=== PATIENT | female | born 1965 | race Caucasian/White ===

== ENCOUNTER → 2020-12-07 14:36 | Outpatient (CLI) | payer OTHER, SELFPAY ==
--- NOTE | ~2020-12-07 | MM_ITS ---
EXAMINATION: MM screening rachel BI w evette HISTORY: Screening mammogram TECHNIQUE: Craniocaudal and mediolateral oblique 3-D tomosynthesis images were obtained and synthetic 2-D images were generated. Bilateral rotated lateral craniocaudal views. CAD analysis was submitted and interpreted. COMPARISON: August 17, 2018 diagnostic left digital mammogram and limited left breast ultrasound August 03, 2018 bilateral screening mammogram 06/06/2014 bilateral digital screening mammogram BREAST PARENCHYMAL COMPOSITION: The breasts are heterogeneously dense, which may obscure small masses . FINDINGS: There is focal architectural distortion in the upper outer quadrant of the left breast; lef t diagnostic mammogram is recommended, with ultrasound if required. Otherwise there is no evidence of suspicious mass, calcification, or architectural distortion to sugg est malignancy in either breast. There has been no suspicious interval change. IMPRESSION: 1. Left upper outer quadrant focal architectural distortion. 2. Diagnostic left mammogram is recommended, with ultrasound if required BI-RADS Category 0: Incomplete: Needs additional imaging evaluation. Reviewed, dictated and finalized at location A.
== END ==
PROVIDERS: Visit Provider Obstetrics & Gynecology Gynecology
DX: Z12.31 Encounter for screening mammogram for malignant neoplasm of breast (principal); R92.8 Other abnormal and inconclusive findings on diagnostic imaging of breast
CPT/HCPCS: 77063; 77067

== ENCOUNTER → 2021-01-08 09:27 | Outpatient (CLI) | payer OTHER, SELFPAY ==
--- NOTE | ~2021-01-08 | MM_ITS ---
EXAMINATION: MM diagnostic rachel LT w evette HISTORY: Left breast asymmetry on screening mammogram TECHNIQUE: Additional 3-D tomosynthesis images of the left breast were performed and synthetic 2-D im ages were generated. CAD analysis was submitted and interpreted. COMPARISON: 12/07/2020, 08/17/2018, 08/03/2018 BREAST PARENCHYMAL COMPOSITION: The breasts are heterogeneously dense, which may obscure small masses . FINDINGS: There is a return to baseline fibroglandular appearance with spot compression of the left b reast in the area questioned on screening mammogram. IMPRESSION: 1. No mammographic evidence of malignancy. 2. Recommend routine screening mammography in one year. BI-RADS Category 1: Negative Reviewed, dictated and finalized at location A.
== END ==
PROVIDERS: PCP Family Medicine; Visit Provider Obstetrics & Gynecology Gynecology
DX: R92.8 Other abnormal and inconclusive findings on diagnostic imaging of breast (principal)
CPT/HCPCS: 77061; 77065; G0279

== ENCOUNTER 2022-04-09 11:54 | Emergency (ER) | payer OTHER, SELFPAY ==
--- NOTE | 2022-04-09 11:56 | ED.URI ---
HPI - URI/Sore Throat General Chief Complaint: Ear Stated Complaint: rt ear ache Time Seen by Provider: 04/09/22 11:56 Source: patient Mode of arrival: ambulatory Limitations: no limitations History of Present Illness HPI Narrative: Ms. Sol is a 56-year-old female patient presenting to clinic today with complaints of right ear pain x1 week. She denies any fever or chills. She does have some nasal congestion as well and some pain over her eustachian tube MD elicited complaint: other (Ear pain) Related Data Home Medications Medication Instructions Recorded Confirmed cholecalciferol (vitamin D3) 10 10 mcg PO DAILY 02/25/20 04/09/22 mcg (400 unit) capsule zinc 50 mg tablet 50 mg PO DAILY 07/09/21 07/09/21 Allergies Allergy/AdvReac Type Severity Reaction Status Date / Time No Known Allergies Allergy Unknown Verified 04/09/22 12:04 Review of Systems Review of Systems: Pertinent positives per HPI. Patient denies any fever, chills, rash, headache, visual changes, dizziness, cough, shortness of breath, chest pain, palpitations, nausea, vomiting, diarrhea, constipation, abdominal pain, or any urinary issues. [facility] Past Medical History Medical History Acute non-recurrent maxillary sinusitis Anemia BMI 25.0-25.9,adult Chronic thoracic back pain COVID-19 (05/15/21) positive home test on 05/18/2021 Screening for viral disease Seasonal allergies Family History Family History Other Family history of coronary artery disease Social History Social History Smoking status: Never smoker Alcohol intake: current Comments At the time of my signature, I reviewed and agree with the nursing past medical, surgical, social, and family history. There is no relevant family history pertinent to the patient complaint. Exam Narrative: General: Well-developed, well nourished, in no apparent distress Head: Normocephalic, atraumatic Eyes: Pupils equally round and reactive to light bilaterally, EOM intact, sclera and conjunctive clear, no discharge, lids normal Ears: TMs intact, dull, opaque, and bulging, ear canals clear, no drainage, grossly hearing normal. Tenderness to palpation of the right eustachian tube Nose: Nares patent, clear nasal discharge, moderate inflammation, no sinus tenderness. Mouth: Oral pharynx without lesions or masses, good dentition, MMM. Postnasal drip Neck: Supple, trachea midline, no enlargement of anterior or posterior cervical nodes, no thyroid masses or goiter palpable. Cardio: Regular rate and rhythm, s1 and s2 normal, no murmur appreciated. Resp: Clear to auscultation bilaterally, no rhonchi, rales, wheezing or rubs Course Course Emergency Course: Portions of this record may have been created with voice recognition software. Level of Care: Express Care Visit Vital Signs Vital signs: Vital signs reviewed MDM - URI/Sore Throat MDM Narrative Medical decision making narrative: At the time of visit patient is resting comfortably on the exam table. I suspect the patient has bilateral eustachian tube dysfunction. Supportive measures were discussed with the patient she voiced understanding of discharge instructions and agrees to treatment plan. Prescription for prednisone was sent to the pharmacy. Differential Diagnosis Differential diagnosis: Likely sinusitis, viral infection, influenza and pharyngitis Discharge Plan Discharge Clinical Impression: Eustachian tube dysfunction Qualifiers: Laterality: bilateral Qualified Code(s): H69.83 - Other specified disorders of Eustachian tube, bilateral Patient Disposition: Home, Self-Care Condition: Stable Instructions: Antibiotic Form, Earache (ED) Additional Instructions: Take any prescribed medications only as directed, prednisone Tylenol
[2022-04-09 12:07] VITALS: BP 114/85; PULSE 94; RESP 16; TEMP 37; O2SAT 100
== END 2022-04-09 12:22 | disposition home or self-care (01) ==
PROVIDERS: Emergency Provider Nurse Practitioner Family; PCP Family Medicine
DX: H69.83 Other specified disorders of Eustachian tube, bilateral (principal); Z86.16 Personal history of COVID-19
CPT/HCPCS: 99213; G0463

== ENCOUNTER → 2023-03-22 13:48 | Outpatient (CLI) | payer OTHER, SELFPAY ==
--- NOTE | ~2023-03-22 | MM_ITS ---
EXAMINATION: MM screening rachel BI w evette HISTORY: Screening TECHNIQUE: Craniocaudal and mediolateral oblique 3-D tomosynthesis images were obtained and synthetic 2-D images were generated. CAD analysis was submitted and interpreted. COMPARISON: Comparison to multiple prior studies sequentially, with oldest reviewed study dated 05/03. BREAST PARENCHYMAL COMPOSITION: The breasts are heterogeneously dense, which may obscure small masses FINDINGS: There is no evidence of suspicious mass, calcification, or architectural distortion to sugg est malignancy in either breast. There has been no suspicious interval change. IMPRESSION: 1. No mammographic evidence of malignancy. 2. Recommend routine screening mammography in one year. BI-RADS Category 1: Negative Reviewed, dictated and finalized at location A.
== END ==
PROVIDERS: PCP Nurse Practitioner Obstetrics & Gynecology; Visit Provider Nurse Practitioner Obstetrics & Gynecology
DX: Z12.31 Encounter for screening mammogram for malignant neoplasm of breast (principal)
CPT/HCPCS: 77063; 77067

== ENCOUNTER 2023-03-23 10:55 | Outpatient (CLI) | payer OTHER, SELFPAY ==
[2023-03-24 12:08] LABS: Kit Draw Collected
== END 2023-03-23 10:56 | disposition home or self-care (01) ==
LOC: ANHGOSHLAB 10:59
PROVIDERS: PCP Nurse Practitioner Obstetrics & Gynecology
DX: Z00.00 Encounter for general adult medical examination without abnormal findings (principal)
CPT/HCPCS: 36415

== ENCOUNTER 2024-03-25 10:10 | Outpatient (CLI) | payer BC, SELFPAY ==
--- NOTE | ~2024-03-25 | MM_ITS ---
EXAMINATION: MM screening rachel BI w evette HISTORY: Screening TECHNIQUE: Craniocaudal and mediolateral oblique 3-D tomosynthesis images were obtained and synthetic 2-D images were generated. CAD analysis was submitted and interpreted. COMPARISON: Comparison to multiple prior studies sequentially, with oldest reviewed study dated 10/2013. BREAST PARENCHYMAL COMPOSITION: Dense: The breasts are heterogeneously dense, which may obscure small masses FINDINGS: There is no evidence of suspicious mass, calcification, or architectural distortion to sugg est malignancy in either breast. There has been no suspicious interval change. IMPRESSION: 1. No mammographic evidence of malignancy. 2. Recommend routine screening mammography in one year. BI-RADS Category 1: Negative Reviewed, dictated and finalized at location B.
== END 2024-03-25 10:11 | disposition home or self-care (01) ==
PROVIDERS: PCP Family Medicine; Visit Provider Nurse Practitioner
DX: Z12.31 Encounter for screening mammogram for malignant neoplasm of breast (principal)
CPT/HCPCS: 77063; 77067

== ENCOUNTER 2024-11-08 09:09 | Outpatient (CLI) | payer BC, SELFPAY ==
--- NOTE | ~2024-11-08 | US_ITS ---
US axilla LT 11/08/2024 09:23 Indication: Palpable left axillary mass Procedure: High-resolution ultrasound of the left axilla Comparison: No prior studies for comparison. Findings: In the area of palpable concern, 6 cm from the nipple there is an irregular shaped hypoecho ic parallel oriented mass measuring 2.1 x 1.6 x 2.1 cm with irregular lateral margins, posterior acou stic enhancement and no internal vascularity. Impression: 1: Complex irregular shaped left axillary mass, 6 cm from the nipple measuring 2.1 cm. Recommendation: Recommend correlation with diagnostic bilateral mammogram. BI-RADS CATEGORY 0 - INCOMPLETE STUDY, NEED ADDITIONAL IMAGING EVALUATION. Reviewed, dictated and finalized at location A. Impression: 1: Complex irregular shaped left axillary mass, 6 cm from the nipple measuring 2.1 cm. Recommendation: Recommend correlation with diagnostic bilateral mammogram. BI-RADS CATEGORY 0 - INCOMPLETE STUDY, NEED ADDITIONAL IMAGING EVALUATION.
== END 2024-11-08 09:10 | disposition home or self-care (01) ==
LOC: MICIMG 09:10
PROVIDERS: PCP Nurse Practitioner; Visit Provider Surgery
DX: R59.0 Localized enlarged lymph nodes (principal); N63.32 Unspecified lump in axillary tail of the left breast
CPT/HCPCS: 76882

== ENCOUNTER 2025-01-15 09:02 | Outpatient (CLI) | payer BC, SELFPAY ==
--- NOTE | ~2025-01-15 | US_ITS ---
EXAMINATION: US GUIDED NEEDLE BIOPSY WITH VACUUM ASSISTANCE DATE: 01/16/2025 07:14 CDT INDICATION: Left axillary mass. Ultrasound-guided core biopsy is requested to evaluate for malignanc y. TECHNIQUE AND FINDINGS: The risks and potential benefits of the procedure were discussed with the patient, and written inform ed consent was obtained. After sterile preparation of the left, 1% lidocaine was utilized for local anesthesia. 1% lidocaine with epinephrine was used for deep anesthesia. A 10G vacuum-assisted biopsy gun needle was advanced through to the outer edge of the region of inter est from a left axillary approach utilizing sonographic guidance. A total of 4 tissue core samples w ere obtained through the lesion. An Inrad tissue marker clip was then placed at the biopsy site. Hem ostasis was achieved. The patient tolerated procedure well and there was no evidence of immediate complication. The patien t was given verbal instructions partly is from the department. The tissue samples were submitted to s urgical pathology for histologic analysis. IMPRESSION: 1. Successful ultrasound-guided vacuum-assisted biopsy of left axillary mass with post procedure rachel mogram for marker placement. Please refer to pathology report for histologic analysis. Reviewed, dictated and finalized at location B. IMPRESSION: 1. Successful ultrasound-guided vacuum-assisted biopsy of left axillary mass w ith post procedure mammogram for marker placement. Please refer to pathology re port for histologic analysis.
--- OUTSIDE RECORDS SUMMARY | 2025-01-15 09:08 | XMS_ITS | Data Portability ---
Author Organization [place] [facility] [place] [place] - DME Address [address] [place] [address] Care Team Providers Care Security Door Installer Name Role Phone DUNCAN DAO Primary Care Provider [phone] Assessment No assessment recorded. Plan of Treatment Reminders Order Date Submit Date Provider Last Modified By Organization Details Last Modified Time Details Appointments None record ed. Lab None record ed. Referral None record ed. Procedures None record ed. Surgeries None record ed. Imaging None record ed. Medication Orders None record ed. Patient TargetsNo targets recorded. Patient Instructions Encounter Date Encounter Id Patient Instructions Last Modified By Organization Details Last Modified Time 09/26/[id number] bone spur repair : before your surgery [email or web address] Not available 09/26/2018 16:00:34 I recommended surgical intervention as the best alternative due to the pain and deformity and effects/limitations on lifestyle and activities. Informed consent during a 30min face to face consult detailing the examination results, diagnosis, prognosis and various treatment alternatives. Discuss all alternatives, conservative care as well as surgical options. I think surgery gives the best chance of alleviating the symptoms. We discussed the indications for surgery, the procedure(s) to be performed, typical disability involved and expected post op course. The patient understands that if surgery is performed, there are risks and potential complications the could occur, including bleeding, hematoma formation, development of blood clots/DVT or phlebitis, infection or inflammation, loss of toes/foot/leg, excessive or prolonged swelling, painful or hypertrophic scar, damage to vital structures, limited motion or stiffness, delayed or abnormal healing, reaction to medication/sutures or other implanted biomaterials, over correction, under correction, recurrence of deformity, continued or recurrent pain, numbness, change or loss of function, damage to nerves, vascular structure, tendon or bones, allergic reaction or anesthesia complications including and the possibility that revision or future surgery may be needed if abnormal healing occurs. All questions were answered to the best of my ability. The patient voiced no concerns, verbalized an understanding and acceptance of the risks and would like to proceed with surgery. Discuss anesthesia options and will discuss further with the anesthesiologist on the day of surgery. Will schedule at [facility] when convenient. Planned procedure(s): MIS exostectomy [email or web address] Not available 09/26/2018 16:00:03 10/05/2018 [id number] I recommended surgical intervention as the best alternative due to the pain and deformity and effects/limitations on lifestyle and activities. Informed consent during a 30min face to face consult detailing the examination results, diagnosis, prognosis and various treatment alternatives. Discuss all alternatives, conservative care as well as surgical options. I think surgery gives the best chance of alleviating the symptoms. We discussed the indications for surgery, the procedure(s) to be performed, typical disability involved and expected post op course. The patient understands that if surgery is performed, there are risks and potential complications the could occur, including bleeding, hematoma formation, development of blood clots/DVT or phlebitis, infection or inflammation, loss of toes/foot/leg, excessive or prolonged swelling, painful or hypertrophic scar, damage to vital structures, limited motion or stiffness, delayed or abnormal healing, reaction to medication/sutures or other implanted biomaterials, over correction, under correction, recurrence of deformity, continued or recurrent pain, numbness, change or loss of function, damage to nerves, vascular structure, tendon or bones, allergic reaction or anesthesia complications including and the possibility that revision or future surgery may be needed if abnormal healing occurs. All questions were answered to the best of my ability. The patient voiced no concerns, verbalized an understanding and acceptance of the risks and would like to proceed with surgery. Discuss anesthesia options and will discuss further with the anesthesiologist on the day of surgery. Will schedule at [facility] when convenient. Planned procedure(s): MIS exostectomy Pre-operative and pre-admission consultation and paperwork completed. The pre-op instructions were reviewed and explained, any needed pre-op testing scheduled, physician pre-surgery consultations/work up and medical/anesthesia clearance issues were addressed. The surgical consent, was reviewed, signed and witnessed. Post op instructions were reviewed and explained in detail, the risks of not following the instructions emphasized. The risks and complication were reviewed, surgical considerations sheets were reviewed. Written copies of the above were given. Post op pain and anti-inflammatory medications and any other prescriptions were given. All questions about the pre- and post-op course, facility protocols and the surgical procedure were fully answered. [email or web address] Not available 10/05/2018 12:14:42 10/11/2018 [id number] Pre op Dx: Exost osis R1 toe distal phalanx Post op Dx: Same Procedure: Exostectomy Ri distal phalanx Anesth: Local MAC Surgeon: Asst: Stephon PGY2 Hemostasis/EBL: <1cc Injectables: Lidocaine 1%, Marcaine 0.5%, dexamethasone phosphate Patient tolerated anesthesia and procedure well, left OR to recovery in good condition and spirits. Scheduled for F/U my office, written instructions and pain meds have been given Not available 10/11/2018 09:40:05 10/16/2018 [id number] Suture removal, ster-strip applied. TYE and bandaid 24-48 hours. Stay in post op shoes x 1 week, then shoes to tolerance. Check 3 weeks for final check. Not available 10/16/2018 14:36:34 11/07/[id number] Shoes and activi ties to tolerance. Try different shoes, I suspect hallux bilateral rubbing. Check PRN. [email or web address] Not available 11/07/2018 13:49:26 Reason for Referral None Reported. Results Created Date Observation Date Name Description Value Unit Range Abnormal Flag Note LastModifiedBy Organization Detail LastModifiedTime Result Notes None recorded. Procedures Surgical History Date Name Laterality Status Provider Name and Address Organization Details Recorded Time 9 [id number] limited RIGHT Ft SK completed Fady Willoughby DPM [facility] [place], [address], [facility] 10/16/2018 14:35:05 9 [id number] limited RIGHT Ft SK completed Fady Willoughby DPM [address] [place], [address], [facility] 09/26/2018 15:58:40 delivery completed [facility] [place] [facility] 09/26/2018 15:27:44 Other completed Racquel Goyal [place] [facility] 09/26/2018 15:27:59 Imaging Results None recorded. Procedure Notes None recorded. Medical Equipment None Reported. Allergies No known drug allergies Medications Name Sig Start Date Stop Date Status Note LastModified by Organization Details LastModified Time cyclobenzaprine 10 mg tablet active Not Available Not Available Not Available amoxicillin 500 mg capsule active Not Available Not Available N ot Available hydrocodone 5 mg-acetaminophen 325 mg tablet active Not Available Not Availabl e Not Available acetaminophen 300 mg-codeine 30 mg tablet active Not Available Not Available Not Available tamsulosin 0.4 mg capsule active Not Available Not Available Not Available nabumetone 500 mg tablet active Not Available Not Available Not Available neomycin 3.5 mg/g-polymyxin B 10,000 unit/g-dexameth 0.1 % eye oint active Not Available Not Availab le Not Available Vitals Date Recorded Body height Body mass index (BMI) Body weight Provider Name and Address Organization Details Last Updated DateTime 09/26/2018 167.64 cm 27.4 kg/m2 05796.7 g Racquel Goyal [facility] 09/26/2018 15:27:09 Date Recorded Body height Body temperature Provider N gopi and Address Organization Details Last Updated DateTime 10/16/2018 167.64 cm 96.7 [degF] [facility] 10/16/2018 14:23:06 Date Recorded Body height Provider Name an d Address Organization Details Last Updated DateTime 11/07/2018 167.64 cm nasir [place]ovalsley [place] [facility] 11/07/2018 12:45:21 Social History Question Answer Notes LastModified by Organizat ion Details LastModified Time Tobacco Smoking Status Never Smoker Racquel Goyal [facility] 09/26/2018 15:27:28 Size Of Shoes 8.5 [email or web address] Information not available 09/26/2018 What Was The Date Of Your Most Recent Tobacco Screening? 11/07/2018 Information n ot available 01/23/2019 Sex: Unknown Functional Status None recorded. Mental Status None recorded. Family History Relationship Description Onset Age of this Age Resolved Age Notes LastModified by Organization Details LastModified Time Father No current problems or disability [email or web address] Not available 09/26 15:27:22 Mother No current problems or disability [email or web address] Not available 09/26 15:27:22 Medical History Condition Response Tuberculosis or TB N Heart Problems N Ulcers on Legs or Feet N HIV or AIDS N Coronary Artery Disease N Gout N Seizure Disorder N High Blood Pressure N Clot in Lung or Pulmonary Embolism N Menopause Y Lung Condition N Phlebitis or Venous Blood Clot N Migraines Y Depression N Pacemaker N Anemia N Back Pain Y Neurologic Disease N Sciatica Y Heart Attack ([place]) N Diabetes N Urinary Tract Infections N Anxiety Disorder N Bleeding Disorder N Arthritis Y Abuse of Alcohol or Drugs N Back injury N Ear Problems Y Cancer N Dementia N Eye Problems N Stroke N Stomach Problems N Peripheral Vascular Disease N Sinus Conditions Y Broken Bone N Thyroid Disorder N High Cholesterol N Hepatitis N Liver Disease N Heart Disease N Rheumatoid Arthritis N Rash N Osteoporosis N Kidney Disease N Gynecological HistoryNo gynecological history recorded. Obstetrics History GPAL:G 0 P 0 0 0 0 Past Encounters Encounter ID Performer Location Encounter Start Date Encounter Closed Date Diagnosis/Indication Diagnosis SNOMED-CT Code Diagnosis ICD10 Code Diagnosis Note [id number] [facility] [address] [place] [address] 09/26/2018 15:15:37 09/26/2018 16:00:51 Exostosis 374578462 M77.9 Pain of to e of right foot 0698840170 93196 M79.674 [id number] [facility] [address] 10/05/2018 10:51:44 10/05/2018 11:34:51 Exostosis 722769786 M77.9 Pain of to e of right foot 2577171945 37201 M79.674 [id number] Fady Willoughby DPM [facility] [address] [place] [address] 10/11/2018 09:09:08 10/11/2018 09:09:59 Exostosis 238257715 M77.9 Pain of to e of right foot 9114347194 19452 M79.674 [id number] Fady Willoughby DPM [place] [address] [place] [address] 10/16/2018 14:14:39 10/16/2018 14:35:46 Exostosis 605284089 M77.9 [id number] Fady Willoughby [facility] [place] [address] [place] [address] 11/07/2018 12:24:35 11/07/2018 12:48:46 Exostosis 536109381 M77.9 Health Concerns Section Related Observation LastModified by Organization Detai ls LastModified Time None Recorded Concern Status LastModified by Organization Details LastModified Time None Recorded Advance Directives Directive None Recorded Payers Insurance Date Sequence Insurance Name Policy Number Policy Asencio Covered Member ID Asencio Member ID Guarantor Name 12/18/2018 1 [place] [id number] Geri Sol [id number] Geri Sol Notes Date Note Type Note Provider Name and Address Organization Details Recorded Time 09/26/2018 text/html R1 toe when nail ukrainian is put on. PPA years ago. No redness, swelling. Burning pain. Fady Willoughby DPM [address] [place], [address], [facility] 09/26/2018 16:00:36 10/05/2018 text/html R1 toe when nail ukrainian is put on. PPA years ago. No redness, swelling. Burning pain. Fady Willoughby DPM [address] [place], [address], [facility] 10/05/2018 12:15:00 10/16/2018 text/html Post-Op Follow Up--Reported bypatient.Locat ion:Surgery on the right toe; R1 Quality:improvi ng Severity:no pain; only when fitting into a shoe Context:wearing a surgial shoe;dressings removed Alleviating Factors:rubbing the area; limited weight bearing; rest Aggravating Factors:pressur e Associated Symptoms:rednes s Prior Imaging:x ray Fady Willoughby DPM [address] [place], [address], [facility] 10/16/2018 14:37:14 11/07/2018 text/html No pain surgical area R1 subungual. Fady Willoughby DPM [address] [place], [address] 11/07/2018 13:49:50 OBGyn Episode No OBEpisode recorded.
--- OUTSIDE RECORDS SUMMARY | 2025-01-15 09:08 | XMS_ITS | Clinical Summary ---
Author Organization [facility] [address] [place] [id number] Care Team Providers Care Demand Planner Name Role Phone Kishor Daley MD Primary Care Provider [phone] Allergies No known active allergies Medications progesterone (PROMETRIUM) 100 mg capsule Take 1 capsule (100 mg total) by mouth nightly 07/30/2024 Active cetirizine (ZyrTEC) 10 mg tablet Take 1 tablet (10 mg total) by mouth daily Active Active Problems Problem Noted Date Diagnosed Date Dysfunction of right eustachian tube 08/21/2024 Assessment & Plan (08/21/2024 8:45 PM [employer]): She has a pretty normal ear exam in her hearing test is generally pretty good also. There maybe some problems with Eustachian tube dysfunction on this side but I think that that is probably going to be temporary. She should expect this to gradually improve over the next 3-4 weeks. If she has any increasing symptoms or other problems I have asked her to follow up with me. She understands. Tinnitus of both ears 08/21/2024 Assessment & Plan (08/21/2024 8:52 PM [employer]): I talked with the patient about tinnitus. Typically it is due to hearing loss but there are other potential reasons for it. It can occur due to cervical strain or TMJ disorder. Also potentially due to tumors which are usually benign. Unfortunately there is no widely accepted or successful treatment for it. There are a lot of [id number] remedies which generally do not help and I really do not recommend any of them. In her case I think it is probably due to her high-frequency sensorineural hearing loss. I do not think that amplification is necessary but I really do not have anything to recommend for the tinnitus. Tonsil stone 08/21/2024 Assessment & Plan (08/21/2024 8:53 PM [employer]): She had listed this on her paperwork but we really did not discuss it. I did not notice anything abnormal involving her tonsils. We will discuss that with her over the phone. Arthralgia of hip 08/18/2015 Encounters Date Type Department Care Team Description 12/03/2024 Telephone [facility] [address] [facility] [address] [address] Brea Kika 12/03/2024 Telephone [facility] Floor [address] [place] [address] Referral, Self Medical Question/Miscellaneous from Last 3 Months Surgical History Surgery Date Site/Laterality Comments BLEPHAROPLASTY Medical History Medical History Date Comments Allergies Ear problems Tinnitus Social History Tobacco Use Types Packs/Day Years Used Date Smoking Tobacco: Never Smokeless Tobacco: Never Tobacco Cessation:Counseling Given: Not Answered Comments Unknown Sex and Gender Information Value Date Recorded Sex Assigned at Not on file Legal Sex Female 10:50 AM [employer] Gender Identity Not on file Sexual Orientation Not on file Obstetrics History Last Filed Vital Signs Vital Sign Reading Time Taken Comments Blood Pressure - - Pulse - - Temperature - - Respiratory Rate 18 08/21/2024 10:17 AM [employer] Oxygen Saturation - - Inhaled Oxygen Concentration - - Weight 71.2 kg (157 lb) 08/21/2024 10:17 AM [employer] Height 167.6 cm (5' 6) 08/21/2024 10:17 AM [employer] Body Mass Index 25.34 08/21/2024 10:17 AM [employer] Plan of Treatment Health Maintenance Due Date Last Done Comments Breast Cancer Screening-Mammogram 1967 Cervical Cancer Screening 1967 Colon Cancer Screening-Colonoscopy 1967 Depression Screening 1967 Hepatitis C Screening 1967 DTaP/Tdap/Td Vaccine (1 - Tdap) 12/29/1978 Hepatitis B Screening 12/29/1985 Regular Well Visit/Exam 18-64 12/29/1985 Zoster Vaccine (1 of 2) 12/29/2017 Influenza Vaccine (#1) 2025 Pneumococcal vaccine <65 Aged Out No longer eligible based on patient's age to complete this topic [facility] [place] [facility] Care Teams Demand Planner Relationship Specialty Start Date End Date Kishor Daley MD [address] [id number] PCP - General Family Medicine 08/06/24
--- OUTSIDE RECORDS SUMMARY | 2025-01-15 09:08 | XMS_ITS | Data Portability ---
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 Patient will come back in a year unless there are new symptoms. [email or web address] Not available 08/23/2022 16:08:44 09/11/2023 09/11/2023 Annual gynecological exam performed. Patient will come back in a year unless there are new symptoms. Not available 09/11/2023 11:02:04 Plan of Treatment Reminders Order Date Submit Date Provider Last Modified By Organization Details Last Modified Time Details Appointments None recorded. Lab vitamin D, 25-hydroxy, total, serum 2022 023 [facility] (Lab), [address], [place], [address], 3 14:23:50 lipid panel, blood 2022 023 [facility] (Lab), [address], [place], [address], 3 14:23:47 HbA1c (hemoglobin A1c), blood 2022 023 [facility] (Lab), [address], [place], [address], 3 14:23:51 CBC w/ auto diff 2022 023 [facility] (Lab), [address] , [place], [address], 3 14:23:50 CMP, serum or plasma 2022 023 [facility] (Lab), [address], [place], [address], 3 14:23:48 TSH, serum or plasma 2022 023 [facility] (Lab), [address], [place], [address], 3 14:23:49 vitamin B12 + folate, serum or blood 2022 023 [facility] (Lab), [address], [place], [address], 3 14:23:49 Referral breast surgery referral 2024 025 [email or web address] 1 Fabiana Ramires MD, [address], [place], [address], 5 11:09:27 Procedures None recorded. Surgeries None recorded. Imaging MAMMO, diagnostic, unilateral - left breast lump 2024 025 [facility], [address], [place], [address], 5 04:12:18 US, breast, unilateral - left breast lump 2024 025 [facility], [address], [place], [address], 5 10:42:04 MAMMO, screening, digital, bilateral 2023 024 [facility], [address], [place], [address], 4 05:01:28 MAMMO, screening, bilateral 2022 023 [facility], [address], [place], [address], 4 05:00:41 Medication Orders fluconazole 150 mg tablet 2023 025 [facility] [address], [place], [address], 5 12:26:58 estradiol 0.01% (0.1 mg/gram) vaginal cream 2023 025 [facility] [address], [place], [address], 5 12:26:57 Patient TargetsNo targets recorded. Patient InstructionsNo instructions recorded. 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, Encounter Date: 10/01/2024 Results Created Date Observation Date Name Description Value Unit Range Abnormal Flag Note LastModifiedBy Organization Detail LastModifiedTime 08/23/1908/23/2022 LIPID PANEL ,AMA (LDL- CALC) total cholesterol 180 mg/dL 0-199 Not Available [facility] [place] [facility] (Lab) [address], [place], [address], 08/24/2022 14:23:47 08/23/19 23 08/23/2022 LIPID PANEL ,AMA (LDL- CALC) triglyceride s 62 mg/dL 0.00-1 50.00 NCEP Refer ence Value s for Trigl yceri flip: Traa l: <150 mg/dL Borde rline High: 150 - 199 mg/dL High: 200 - 499 mg/dL Very High: >/= 500 mg/dL Not Available [facility] (Lab) [address], [place], [address], 08/24/2022 14:23:47 08/23/19 23 08/23/2022 LIPID PANEL ,AMA (LDL- CALC) HDL cholesterol 84 mg/dL >40 Not Available [facility] [place] [facility] (Lab) [address] [facility], [place], [address], 08/24/2022 14:23:47 08/23/19 23 08/23/2022 LIPID PANEL ,AMA (LDL- CALC) LDL cholesterol 84 mg/dL 0-99 Cutof f value s recom alem d by the Natio nal Caterina stero l Educa tion Progr am: HOMER ABLE: Caterina stero l <200 mg/dL LDL <100 mg/dL BORDE RLINE : Caterina stero l 200-2 39 mg/dL LDL 101-1 59 mg/dL HIGHE R RISK: Caterina stero l >240 mg/dL LDL >160 mg/dL , HDL <40 mg/dL Not Available [facility] (Lab) [address] [facility], [place], [address], 08/24/2022 14:23:47 08/23/19 23 08/23/2022 LIPID PANEL ,AMA (LDL- CALC) non-HDL cholesterol 96 mg/dL no refere nce range A reaso nable goal for non-H DL caterina stero l is one that is 30 mg/dL highe r than the LDL caterina stero l goal. Not Available [facility] (Lab) [address], [place], [address], 08/24/2022 14:23:47 08/23/19 23 08/23/2022 LIPID PANEL ,AMA (LDL- CALC) chol/HDL ratio 2.1 . 0.0-5. 0 Not Available [facility] (Lab) [address] [facility] [address], [place], [address], 08/24/2022 14:23:47 08/23/19 23 08/23/2022 CMP(C OMPRE HENSI VE METAB OLIC PANEL ) sodium 139 mmol/ L 133-14 6 Not Available [facility] (Lab) [address] [facility], [place], [address], 08/24/2022 14:23:48 08/23/19 23 08/23/2022 CMP(C OMPRE HENSI VE METAB OLIC PANEL ) potassium 4.2 mmol/ L 3.5-5. 1 Not Available [facility] (Lab) [address], [place], [address], 08/24/2022 14:23:48 08/23/19 23 08/23/2022 CMP(C OMPRE HENSI VE METAB OLIC PANEL ) chloride 105 mmol/ L 98-107 Not Available [facility] (Lab) [address], [place], [address], 08/24/2022 14:23:48 08/23/19 23 08/23/2022 CMP(C OMPRE HENSI VE METAB OLIC PANEL ) carbon dioxide 25 mmol/ L 21-31 Not Available [facility] (Lab) [address] [facility], [place], [address], 08/24/2022 14:23:48 08/23/19 23 08/23/2022 CMP(C OMPRE HENSI VE METAB OLIC PANEL ) anion gap 9 mmol/ L 4-13 Not Available [facility] (Lab) [address] [facility], [place], [address], 08/24/2022 14:23:48 08/23/19 23 08/23/2022 CMP(C OMPRE HENSI VE METAB OLIC PANEL ) blood urea nitrogen 24 mg/dL 7-25 Not Available [facility] (Lab) [address], [place], [address], 08/24/2022 14:23:48 08/23/19 23 08/23/2022 CMP(C OMPRE HENSI VE METAB OLIC PANEL ) creatinine 0.84 mg/dL 0.60-1 .30 Not Available [facility] (Lab) [address], [place], [address], 08/24/2022 14:23:48 08/23/19 23 08/23/2022 CMP(C OMPRE HENSI VE METAB OLIC PANEL ) egfrcr (CKD-epi 2020) 83 mL/mi n/1.7 3_m2 >=60 Not Available [facility] (Lab) [address], [place], [address], 08/24/2022 14:23:48 08/23/19 23 08/23/2022 CMP(C OMPRE HENSI VE METAB OLIC PANEL ) calcium 9.3 mg/dL 8.3-10 .5 Not Available [facility] (Lab) [address], [place], [address], 08/24/2022 14:23:48 08/23/19 23 08/23/2022 CMP(C OMPRE HENSI VE METAB OLIC PANEL ) glucose 88 mg/dL 70-100 Not Available [facility] (Lab) [address], [place], [address], 08/24/2022 14:23:48 08/23/19 23 08/23/2022 CMP(C OMPRE HENSI VE METAB OLIC PANEL ) protein, total 6.4 g/dL 6.4-8. 3 Not Available [facility] (Lab) [address], [place], [address], 08/24/2022 14:23:48 08/23/19 23 08/23/2022 CMP(C OMPRE HENSI VE METAB OLIC PANEL ) albumin 4.4 g/dL 3.5-5. 0 Not Available [facility] (Lab) [address], [place], [address], 08/24/2022 14:23:48 08/23/19 23 08/23/2022 CMP(C OMPRE HENSI VE METAB OLIC PANEL ) ALT 13 units /L 9-43 Not Available [facility] (Lab) [address], [place], [address], 08/24/2022 14:23:48 08/23/19 23 08/23/2022 CMP(C OMPRE HENSI VE METAB OLIC PANEL ) alkaline phosphatase 71 units /L 34-104 Not Available [facility] (Lab) [address] [facility], [place], [address], 08/24/2022 14:23:48 08/23/19 23 08/23/2022 CMP(C OMPRE HENSI VE METAB OLIC PANEL ) AST 14 units /L 13-39 Not Available [facility] (Lab) [address] [facility], [place], [address], 08/24/2022 14:23:48 08/23/19 23 08/23/2022 CMP(C OMPRE HENSI VE METAB OLIC PANEL ) bilirubin, total 0.4 mg/dL 0.2-1. 2 Not Available [facility] (Lab) [address], [place], [address], 08/24/2022 14:23:48 08/23/19 23 08/23/2022 TSH, REFLE X FREE T4 TSH 1.98 uIU/m L 0.30-5 .33 Not Available [facility] (Lab) [address], [place], [address], 08/24/2022 14:23:48 08/23/19 23 08/23/2022 VITAM IN B12 / FOLAT E PANEL vitamin B12 456 pg/mL 180-91 4 Tara l Range : 180-9 14 pg/mL . Indet ermin ate Range : 145-1 80 pg/mL . Defic ient Range : <=145 pg/mL . Not Available [facility] (Lab) [address] [place], [address], 08/24/2022 14:23:49 08/23/19 23 08/23/2022 VITAM IN B12 / FOLAT E PANEL folate, serum 13.5 NG/mL 6.0-20 .0 Not Available [facility] (Lab) [address] [place], [address], 08/24/2022 14:23:49 08/23/19 23 08/23/2022 VITAM IN D, 25-OH (TOTA L D2/D3 ) vitamin D, 25-hydroxy, total 75.6 NG/mL 30.0-1 00.0 Sugge stive of Defic iency : <20 ng/mL Sugge stive of Insuf ficie ncy: 20-29 ng/mL Sugge stive of Suffi cienc y: 30-10 0 ng/mL Sugge stive of Toxic ity: >150 ng/mL Not Available [facility] (Lab) [address], [place], [address], 08/24/2022 14:23:50 08/23/19 23 08/23/2022 CBC W/DIF F WBC 5.5 10'3/ uL 3.6-10 .2 Not Available [facility] (Lab) [address], [place], [address], 08/24/2022 14:23:50 08/23/19 23 08/23/2022 CBC W/DIF F RBC 4.38 10'6/ uL (based on docume nted legal sex) 4.10-5 .30 Not Available [facility] (Lab) [address], [place], [address], 08/24/2022 14:23:50 08/23/19 23 08/23/2022 CBC W/DIF F HGB 10.4 g/dL (based on docume nted legal sex) 11.9-1 5.8 low Not Available [facility] (Lab) [address], [place], [address], 08/24/2022 14:23:50 08/23/19 23 08/23/2022 CBC W/DIF F HCT 35.1 % (based on docume nted legal sex) 37.4-4 8.3 low Not Available [facility] (Lab) [address], [place], [address], 08/24/2022 14:23:50 08/23/19 23 08/23/2022 CBC W/DIF F MCV 80.1 fL 82.0-9 9.0 low Not Available [facility] (Lab) [address], [place], [address], 08/24/2022 14:23:50 08/23/19 23 08/23/2022 CBC W/DIF F MCH 23.7 pg 27.0-3 3.0 low Not Available [facility] (Lab) [address], [place], [address], 08/24/2022 14:23:50 08/23/19 23 08/23/2022 CBC W/DIF F MCHC 29.6 g/dL 32.0-3 6.0 low Not Available [facility] (Lab) [address], [place], [address], 08/24/2022 14:23:50 08/23/19 23 08/23/2022 CBC W/DIF F RDW 14.8 % 11.0-1 5.0 Not Available [facility] (Lab) [address], [place], [address], 08/24/2022 14:23:50 08/23/19 23 08/23/2022 CBC W/DIF F plt 268 10'3/ uL 150-45 0 Not Available [facility] (Lab) [address], [place], [address], 08/24/2022 14:23:50 08/23/19 23 08/23/2022 CBC W/DIF F MPV 11.9 fL 9.8-12 .7 Not Available [facility] (Lab) [address], [place], [address], 08/24/2022 14:23:50 08/23/19 23 08/23/2022 CBC W/DIF F NRBC's 0.0 % 0 Not Available [facility] (Lab) [address], [place], [address], 08/24/2022 14:23:50 08/23/19 23 08/23/2022 CBC W/DIF F absolute NRBCs 0.0 10'3/ uL 0 Not Available [facility] (Lab) [address] [facility], [place], [address], 08/24/2022 14:23:50 08/23/19 23 08/23/2022 CBC W/DIF F neutrophils 60.9 % 37.0-7 2.0 Not Available [facility] (Lab) [address] [facility], [place], [address], 08/24/2022 14:23:50 08/23/19 23 08/23/2022 CBC W/DIF F lymphocytes 29.5 % 16.0-4 8.0 Not Available [facility] (Lab) [address] [facility], [place], [address], 08/24/2022 14:23:50 08/23/19 23 08/23/2022 CBC W/DIF F monocytes 6.5 % 4.0-14 .0 Not Available [facility] (Lab) [address] [facility], [place], [address], 08/24/2022 14:23:50 08/23/19 23 08/23/2022 CBC W/DIF F eosinophils 2.0 % 0.0-9. 0 Not Available [facility] (Lab) [address] [facility], [place], [address], 08/24/2022 14:23:50 08/23/19 23 08/23/2022 CBC W/DIF F basophils 0.9 % 0.0-2. 0 Not Available [facility] (Lab) [address] [facility], [place], [address], 08/24/2022 14:23:50 08/23/19 23 08/23/2022 CBC W/DIF F immature granulocytes 0.2 % no define d refere nce range Not Available [facility] (Lab) [address] [facility] [address], [place], [address], 08/24/2022 14:23:50 08/23/19 23 08/23/2022 CBC W/DIF F absolute neutrophils 3.4 10'3/ uL 1.1-6. 0 Not Available [facility] (Lab) [address] [facility], [place], [address], 08/24/2022 14:23:50 08/23/19 23 08/23/2022 CBC W/DIF F absolute lymphocytes 1.6 10'3/ uL 0.7-3. 4 Not Available [facility] (Lab) [address] [facility], [place], [address], 08/24/2022 14:23:50 08/23/19 23 08/23/2022 CBC W/DIF F absolute monocytes 0.4 10'3/ uL 0.3-1. 0 Not Available [facility] (Lab) [address] [facility], [place], [address], 08/24/2022 14:23:50 08/23/19 23 08/23/2022 CBC W/DIF F absolute eosinophils 0.1 10'3/ uL 0.0-0. 6 Not Available [facility] (Lab) [address], [place], [address], 08/24/2022 14:23:50 08/23/19 23 08/23/2022 CBC W/DIF F absolute basophils 0.1 10'3/ uL 0.0-0. 1 Not Available [facility] (Lab) [address] [facility], [place], [address], 08/24/2022 14:23:50 08/23/19 23 08/23/2022 CBC W/DIF F absolute immature granulocytes 0.0 10'3/ uL 0.00-0 .10 2022 4:13 AM: P indic ates parti al resul ts on a panel have been relea sed. Addit ional resul ts will follo w. 2022 4:13 AM: This resul t has been final verif ied. No addit ional or guerrero ed resul ts are expec ksenia. Not Available [facility] (Lab) [address], [place], [address], 08/24/2022 14:23:50 08/23/19 23 08/23/2022 HEMOG LOBIN A1C hemoglobin A1C 5.7 % 0-5.6 high The Ameri can Diabe kunal [employer] iatio n recom mends that a prima ry goal of thera py shoul d be a HBA1C of < 7% and that physi cians shoul d reeva luate the treat ment regim en in patie nts with HBA1C value s consi stent ly > 8%. 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 Atrop hic cell lauren causey. Elect kaylaketan rejiflex lisa d by Raza Wu ed, CT on 2022 at 8:52 PM ----- ----- ----- ----- ----- ----- ----- ----- ----- ----- ----- ----- ----- ----- ----- ----- ----- ---- HPV RESUL TS: HPV mRNA E6/E7 : No HPV mRNA Detec ksneia NOTE: This high risk HPV mRNA assay detec ts fourt een high- risk HPV types (16, 18, 31, 33, 35, 39, 45, 51, 52, 56, 58, 59, 66, 68) witho ut diffe renti ation . COMME NT: Note: This speci men was revie wed by a Cytot echno logis t and/o r Patho logis t (as indic ated in this repor t) after evalu ation using the Thinp rep Imagi ng Syste m. CLINI REBECCA INFOR MATIO N: Menst rual Statu s: LMP (if appli cable ): Clini rebecca Histo ry/Pr eviou s Pap: Type of Neopl deonte (if appli cable ): Signi fican t Clini rebecca Findi ngs: Other Histo ry: Hormo remedios (if appli cable ): PAP EDUCA LEVON L NOTE: The Pap Test is a scree liana test with an inher ent false negat phil rate. Liqui d-bas ed sampl ing may decre ase, but will not elimi ashlee, false negat phil resul ts. A negat phil resul t does not precl ude the prese nce and/o r devel opmen t of disea se, since the prese nce of abnor mal cells in the sampl e depen ds on the locat ion of the lesio n and sampl ing techn ique. Kt nued regul ar scree liana is the best metho d of cance r preve ntion . If repor ksenia cytol ogic findi ng do not corre late with physi rebecca and/o r histo rical findi ngs, furth er inves tigat ion is recom alem d, as clini real mishra nted. Not Available [facility] (Lab) [address], [place], [address], 08/25/2022 21:54:40 03/22/20 23 03/22/2023 MAMMO , scree liana, bilat eral No observ ation record ed. [email or web address] [facility] [address], [place], [address], 05/01/2023 14:24:16 03/25/20 24 03/25/2024 MAMMO , scree liana, digit al, bilat eral No observ ation record ed. KENN [facility] [address], [place], [address], 04/08/2024 04:09:39 10/11/19 25 10/10/2024 therm ogram , breas t No observ ation record ed. [email or web address] [employer] [address] [facility] [place], [address], 10/22/2024 10:44:27 11/09/19 25 11/08/2024 US, breas t, unila teral No observ ation record ed. [facility] [address], [place], [address], 11/08/2024 14:46:42 Result Notes None recorded. Problems Name Problem SNOMED Code Status Onset Date Resolution Date Notes Provider Name and Address Organization Details Recorded Time Removal of intrauter ine device Completed 201104/03/2012 REMOVAL OF IUD;Record ed Elsewhere: No Locatio n: [facility] Mable rce: EHR Chroni c: N Practice ID: [id number] Billa ble Time: 01:45:00 PM Sara Francisco [place], [place] - [facility] 3 15:46:48 Problem Notes None recorded. Procedures Surgical History Date Name Laterality Status Provider Name and Address Organization Details Recorded Time 4 Date of Last Mammogram completed Nela Ferrara [facility] 10/01/2024 12:09:30 3 Date of Last Pap Smear completed Bren Power [facility] 10/23/2023 09:22:12 1 section completed [facility] 08/23/2022 15:49:08 8 section completed [facility] 08/23/2022 15:48:59 procedure on tendon completed [facility] 08/23/2022 15:48:49 biopsy of breast completed PASCUAL [facility] [address], [place], [address], [facility] 10/01/2024 15:25:48 Imaging Results None recorded. Procedure Notes None recorded. Medical Equipment None Reported. Allergies No known drug allergies Medications Name Sig Start Date Stop Date Status Note LastModified by Organization Details LastModified Time Flomax 0.4 mg capsule take 1 capsule by oral route every day 1/2 hour followin g the same meal each day 08/23 completed Prescrib ed Elsewher e: Yes [facility] By: lottie bear DateTime : 02/02/20 17 01:00:00 PM Not Available Not Available Not Available fluconazo le 100 mg tablet TAKE 1 TABLET BY MOUTH EVERY 72 HOURS 10/22 completed Not Available Not Available Not Available Nasal [place] (oxymetaz oline) 0.05 % spray 2 spray by intranas al route 2 times every day in each nostril in the morning and evening 02/01 completed Prescrib ed Elsewher e: Yes Loca tion: [facility] odify By: lottie bear DateTime : 04/30/20 14 01:30:00 PM Not Available Not Available Not Available nystatin 100,000 unit/mL oral suspensio n SWISH & SWALLOW 5 ML BY MOUTH 4 TIMES DAILY UNTIL CLEAR 10/22 completed Not Available Not Available Not Available cetirizin e 10 mg tablet TAKE 1/2 TO 1 (ONE-GRETCHEN F TO ONE) TABLET BY MOUTH ONCE DAILY NEEDED 08/23 completed Not Available Not Available Not Available azithromy sravani 250 mg tablet TAKE 2 TABLETS BY MOUTH TODAY, THEN TAKE 1 TABLET DAILY FOR 4 DAYS DIRECTED 10/01 completed Not Available Not Available Not Available fluconazo le 150 mg tablet TAKE ONE TABLET BY MOUTH A ONE-TIME DOSE NOW, THEN REPEAT IN 72 HOURS IF NEEDED 10/01 completed Not Available Not Available Not Available Vicodin 5 mg-500 mg tablet take 2 Tablet by Oral route 2 hours before procedur e and then 1-2 tabs q 4hours prn post op 03/06 completed Prescrib ed Elsewher e: No Locat ion: [facility] odify By: arielle elizondo DateTime : 04/30/20 12 10:24:12 AM Not Available Not Available Not Available prednison e 20 mg tablet TAKE 2 TABLETS BY MOUTH ONCE DAILY FOR 5 DAYS 08/23 completed Not Available Not Available Not Available tramadol 50 mg tablet take 1 - 2 Tablet by oral route every 6 hours as needed 02/01 completed Prescrib ed Elsewher e: No Locat ion: [facility] odify By: lottie bear DateTime : 08/13/19 16 02:00:00 PM Not Available Not Available Not Available triamcino lone acetonide 0.1 % topical cream APPLY CREAM TO EAR CANAL TWICE DAILY FOR UP TO 2 WEEKS NEEDED FOR SEBORRHE A 10/22 completed Not Available Not Available Not Available Celebrex 200 mg capsule take 1 by Oral route po night before and 400mg po morning of procedur e 03/06 completed Prescrib ed Elsewher e: No Locat ion: [facility] odify By: arielle elizondo DateTime : 04/30/20 12 10:24:12 AM Not Available Not Available Not Available amoxicill in 875 mg tablet TAKE 1 TABLET BY MOUTH EVERY 12 HOURS 10/01 completed Not Available Not Available Not Available amitripty line 25 mg tablet take 1 tablet by oral route every day at bedtime 08/13 completed Prescrib ed Elsewher e: No Locat ion: [facility] odify By: [email or web address] Ryan ncounter DateTime : 05/27/20 15 10:15:00 AM Not Available Not Available Not Available Soma 350 mg tablet take 1 tablet by oral route 3 times every day and at bedtime 02/01 completed Prescrib ed Elsewher e: No Locat ion: [facility] ryan [facility] odify By: lottie Davis ncounter DateTime : 08/13/19 16 02:00:00 PM Not Available Not Available Not Available Daypro 600 mg tablet take 1 - 2 tablet by oral route every day 04/30 completed Prescrib ed Elsewher e: No Locat ion: [facility] odify By: arielle elizondo DateTime : 01/01/20 14 05:03:00 PM Not Available Not Available Not Available dexametha sone 4 mg tablet TAKE 2 TABLETS BY MOUTH ONCE DAILY ON DAY OF SURGERY, THEN 2 TABLETS ONCE DAILY ON DAY AFTER SURGERY, THEN 1 TABLET ONCE DAILY ON SECOND DAY AFTER SURGERY 10/01 completed Not Available Not Available Not Available progester one micronize d 200 mg capsule TAKE 1 CAPSULE BY MOUTH AT BEDTIME active Not Available Not Available No t Available Valtrex 500 mg tablet take 1 tablet by oral route every 12 hours 12/18 completed Prescrib ed Elsewher e: No Locat ion: [facility] odify By: [email or web address] tz Encou nter DateTime : 12/19/19 14 02:00:00 PM Not Available Not Available Not Available Vistaril 25 mg capsule take 2 capsule (25MG) by oral route 2 hours before procedur e and prn for post op nausea 03/06 completed Prescrib ed Elsewher e: No Locat ion: [facility] odify By: arielle elizondo DateTime : 04/30/20 12 10:24:12 AM Not Available Not Available Not Available diazepam 10 mg tablet take 1 tablet (10MG) by oral route 1-2 hours before procedur e 03/06 completed Prescrib ed Elsewher e: No Locat ion: [facility] odify By: arielle elizondo DateTime : 04/30/20 12 10:24:12 AM Not Available Not Available Not Available ibuprofen 600 mg tablet TAKE 1 TABLET BY MOUTH EVERY 6 TO 8 HOURS NEEDED 10/01 completed Not Available Not Available Not Available estradiol 0.01% (0.1 mg/gram) vaginal cream INSERT 1 GRAM VAGINALL Y NIGHTLY FOR 2 WEEKS THEN INSERT 1 GRAM AT BEDTIME 2 TO 3 TIMES PER WEEK MAINTENA NCE DOSE 10/01 completed Not Available Not Available Not Available Vitamin D2 1,250 mcg (50,000 unit) capsule take 1 capsule by oral route every week 04/30 completed Prescrib ed Elsewher e: Yes Loca tion: [facility] odify By: arielle elizondo DateTime : 10/25/19 12 10:00:00 AM Not Available Not Available Not Available ketorolac 60 mg/2 mL intramusc ular solution inject 1 millilit er (30MG) by intramus cular route, pt to bring to office 03/06 completed Prescrib ed Elsewher e: No Locat ion: Katie davis [facility] odify By: arielle elizondo DateTime : 04/30/20 12 10:24:12 AM Not Available Not Available Not Available progester one micronize d 100 mg capsule TAKE 1 CAPSULE BY MOUTH NIGHTLY 10/01 completed Not Available Not Available Not Available NuvaRing 0.12 mg-0.015 mg/24 hr vaginal insert 1 vaginal ring by vaginal route every month leave in place for 3 weeks, remove for 1 week 03/06 completed Prescrib ed Elsewher e: No Locat ion: Katie [facility] odify By: arielle elizondo DateTime : 04/02/20 12 01:45:00 PM Not Available Not Available Not Available zinc 09/10 completed Not Available Not Available Not Available Vitamin D3 10/22 completed Not Available Not Available Not Available fluocinol one acetonide oil 0.01 % ear drops INSTILL 5 DROPS IN EACH EAR TWICE DAILY FOR 14 DAYS 08/23 completed Not Available Not Available Not Available Zyrtec [address] by Topical route every USE ASS NEEDED WITH INTERCOU RSE 04/30 completed Prescrib ed Elsewher e: Yes Loca tion: [facility] odify By: arielle elizondo DateTime : 04/02/20 12 01:45:00 PM Not Available Not Available Not Available 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 active Not Available Not Available No t Available estradiol 10 mg implant pellet Take by implanta tion route. active Not Available Not Available No t Available Vitals Date Recorded Body height Body mass index (BMI) Body weight Systolic And Diastolic Provider Name and Address Organization Details Last Updated DateTime 08/23/2022 167.64 cm 25.1 kg/m2 65999.69 g 124/70 mm[Hg] [facility] 08/23/2022 15:45:14 Date Recorded Body weight Systolic And Diastolic Provider Name and Address Organization Details Last Updated DateTime 09/11/2023 81834.57 g 107/67 mm[Hg] [facility] 09/11/2023 11:02:31 Date Recorded Body height Body mass index (BMI) Body weight Systolic And Diastolic Provider Name and Address Organization Details Last Updated DateTime 10/01/2024 167.64 cm 25.7 kg/m2 53981.19 g 107/71 mm[Hg] Nela Ferrara [facility] 10/01/2024 12:26:28 Date Recorded Body height Body mass index (BMI) Body weight Systolic And Diastolic Provider Name and Address Organization Details Last Updated DateTime 10/23/2023 167.64 cm 25 kg/m2 14279.82 g 108/68 mm[Hg] Bren Power [facility] 10/23/2023 09:21:07 Social History Question Answer Notes LastModified by Organizat ion Details LastModified Time Tobacco Smoking Status Never Smoker Sara Francisco grzegorz, [facility] 08/23/2022 15:48:36 How Many Years Have You Consumed Alcohol? 36 Information not available 08/23/2022 Are You Blind Or Do You Have Difficulty Seeing? No Information n ot available 08/23/2022 What Is Your Level Of Caffeine Consumption? Heavy Information not available 08/23/2022 How Much Tobacco Do You Chew? None Information not available 08/23/2022 In The 14 Days Before Symptom Onset, Have You Had Close Contact With A Laboratory-confirm ed COVID-19 While That Case Was Ill? No Information n ot available 08/23/2022 In The 14 Days Before Symptom Onset, Have You Had Close Contact With A Person Who Is Under Investigation For COVID-19 While That Person Was Ill? No Information not available 08/23/2022 Have You Been To An Area Known To Be High Risk For COVID-19? No Information not available 08/23/2022 Are You Deaf Or Do You Have Serious Difficulty Hearing? No Information not available 08/23/2022 What Type Of Diet Are You Following? REGULAR Information n ot available 08/23/2022 What Is The Highest Grade Or Level Of School You Have Completed Or The Highest Degree You Have Received? [id number] Information not available 08/23/2022 Do You Use Protection During Sex? No Information not available 08/23/2022 Do You Use Your Seat Belt Or Car Seat Routinely? Yes Information not available 08/23/2022 Do You Have Smoke And Carbon Monoxide Detectors In Your Home? No Information not available 08/23/2022 How Much Tobacco Do You Smoke? No Information not available 08/23/2022 How Many Years Have You Smoked Tobacco? 0 Information not available 08/23/2022 Have You Used IV Drugs? No Information not available 08/23/2022 Do You Have Difficulty Walking Or Climbing Stairs? No Information not available 08/23/2022 Sex: Unknown Functional Status Question Answer Note LastModified by Organizat ion Details LastModified Time Do you use any illicit or recreational drugs? No Information not available 08/23/2022 What is your level of alcohol consumption? Occasional Information not available 08/23/2022 Are you able to walk? YESWOREST Information not available 08/23/2022 Are you able to care for yourself? 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 No Information not available 08/23/2022 What is your exercise level? Heavy Information not available 08/23/2022 Mental Status Question Answer Note LastModified by Organization D etails LastModified Time Do you feel stressed (tense, restless, nervous, or anxious, or unable to sleep at night)? [id number] Information not available 08/23/2022 Family History Nothing Reported Notes:Adopted Medical History Condition Response Allergies (Food, seasonal, environmental ) N Other N Breast Cancer N Drug/Latex Allergies/Reactions N Blood Transfusion N Dermatologic Disorders N Lung Disease N Defects or Inherited Disease N Breast Problem N Gestational Diabetes N Hematologic disorders N Anesthesia Complications N History of STI N Deep Vein Thrombosis N Polycystic ovary syndrome N Anxiety Disorder N Autoimmune disease N Arthritis N Infertility N Polyps N Acid Reflux (GERD) N History of abnormal pap N Cancer N Stroke N Varicosities N Neurologic/Epilepsy N Endometriosis N High Cholesterol N Headaches N Fibromyalgia N Kidney Disease N Heart Problems N Kidney or Bladder Problems N Thyroid Problems N GI Problems N Eating Disorder N Anemia Y Art (IVF or FET) N Psychiatric Illness N Ovarian Cancer N Diabetes N Pulmonary (TB, Asthma) N Hepatitis/Liver Disease N No Past Medical History N Eczema N Urinary Tract Infection N Abuse/Domestic Violence N Asthma N Trauma/Violence N Depression/ depression N Heart Disease N Pre-Eclampsia N Hypertension N Osteoporosis N Thrombophilias N Gynecological History Statement/Question Response Abnormal Pap N Date of Last Mammogram 03/25/2024 N STIs/STDs N HPV Vaccine N Current Control Method Menopause Age at First Child 32 If Post Menopausal, Age at Menopause 52 Date of Last Colonoscopy Sexually Active? Y Menses Monthly N Date of DEXA bone scan Age of first menstrual cycle 15 Date of Last Pap Smear 08/23/2022 Sexual Problems? N LMP Unknown N Obstetrics History GPAL:G 4 P 2 0 2 2 Type Value Full Term 2 Spontaneous 2 Living 2 Total 4 Past Encounters Encounter ID Performer Location Encounter Start Date Encounter Closed Date Diagnosis/Indication Diagnosis SNOMED-CT Code Diagnosis ICD10 Code Diagnosis Note [id number] PASCUAL [facility] [address] [address] 08/23/2022 15:36:18 08/23/2022 16:31:55 Gynecologic examination 16519976 Z01.419 Take Calcium with Vitamin D 12-1500mg daily. Do monthly self breast exams. It is advised to get annual flu shot in the fall and she could obtain at [facility] or [facility] clinic. If you haven't received the Tdap vaccine in the last 10 years you should obtain one as well. Have mammogram yearly, bone density every 2-3 years and colonoscop y every 5-10 years depending on findings and history. Engage in daily exercise of low impact aerobic exercise 45-60 minutes 4-5 times weekly. Avoid tobacco and illicit drugs as well as using moderation with alcohol intake less than 1-2 8 oz beverages daily. This lifestyle behavior pattern will lead to less health conditions and longer life span. If BMI greater than 25 weight watchers or dietary consult advised. Questions have been answered. Patient appears to understand instructio ns, but if you have any further questions call or respond to this email Pap/hpv sentSTD Screen declinedGe netic Screen discussedC olon Screen UTD PCP age 52yoDexa Screen UTD PCP 2021Routin e Labs ordered (will have sent to PCP)Mammo ordered Adult heal th examination [id number] Z00.00 Will fax results to PCP Vitamin D deficiency 347 24090 E55.9 Screening mammography 24 214781 Z12.31 [id number] PASCUAL [facility] [place] [address] [address] 09/11/2023 10:45:00 09/11/2023 11:59:42 Gynecologic examination 08227887 Z01.419 WWEpaps Q3-5 per asccp guidelines declined STI screenmasavannah roberts due olo noscopy UTD/PCProu benedicto labs UTD/PCP Take Calcium with Vitamin D daily. Do monthly self breast exams. It is advised to get annual flu shot in the fall and she could obtain at [facility] or [facility] clinic. If you haven't received the Tdap vaccine in the last 10 years you should obtain one as well. Have mammogram yearly, bone density every 2-3 years and colonoscop y every 5-10 years depending on findings and history. Engage in daily exercise of low impact aerobic exercise 45-60 minutes 4-5 times weekly. Avoid tobacco and illicit drugs. This lifestyle behavior pattern will lead to less health conditions and longer life span. If BMI greater than 25 dietary consult advised. Questions have been answered. Patient appears to understand instructio ns, but if you have any further questions call or respond to this email Screening mammography 24 925943 Z12.31 Reduced libido 0663401 R 68.82 Discussed complex topic of libidoreco mmended chrissy appreviewe d pharmacolo gic optionsopt s for compounded testostero ne oil - r/b/a reviewedca n send in rx once pellets have in check after 3 month use [id number] Merly Meza GÉNESIS [place] [address] [address] 10/23/2023 09:17:41 10/23/2023 11:21:18 Vaginitis 45183950 N76.0 vaginitis panel sentdeclin ed STI screenrx sent for yeast, r/b/a reviewed Vaginal dryness 71475979 N89.8 Discussed management optionsveg based moisturize r routine discussed, use as lubricant with ICopts to start vaginal estrogen, r/b/a reviewed - rx sentuse nightly x 2 weeks, then 2-3 times per week at bedtime as maintenanc e dose Reduced libido 5533281 R 68.82 Discussed complex topic of libidoreco mmended chrissy mosesreviewe d pharmacolo gic optionsopt s for compounded testostero ne oil - r/b/a reviewedca n send in rx once pellets have in check after 3 month use Time spent in visit is a total of 30 mins with at least 50% of visit consisting of counseling and review of plan of care. [id number] PASCUAL Ros[facility] [place] [address] [address] 10/01/2024 12:12:18 10/01/2024 15:48:34 Breast lump 84364943 N63.0 left breast lump, warrants further evaluation order given for left diagnostic mammogram with left breast u/sreferra l to breast specialist placed, f/u after imaging Time spent in visit is a total of 18 mins with at least 50% of visit consisting of counseling and review of plan of care. Health Concerns Section Related Observation LastModified by Organization Detai ls LastModified Time None Recorded Concern Status LastModified by Organization Details LastModified Time None Recorded Advance Directives Directive None Recorded Payers Insurance Date Sequence Insurance Name Policy Number Policy Asencio Covered Member ID Asencio Member ID Guarantor Name 10/01/2024 1 [place] [id number] Geri Sol [id number] Geri Sol 08/31/2023 1 [facility] [id number] Geir Sol [id number] Geri Sol Notes Date Note Type Note Provider Name and Address Organization Details Recorded Time 08/23/2022 text/html Annual Inspector Casing Post-MenopausalRepor ksenia bypatient.Menopausal Symptoms:no menopausal symptoms; normal vaginal lubrication Vaginal Bleeding:history of menopause having occurred; no history of post menopausal bleeding Urinary Symptoms:no hematuria; no incontinence; no nocturia; no urinary frequency Vulva:no genital lesion; no vulvar atrophy Vagina:normal vaginal discharge; no vaginal atrophy Breast:no breast lump; no nipple discharge; no breast pain Sexual Complaints:no sexual complaints Psychological Symptoms:no depression; no anxiety Preventive Measures:encourage regular mammograms starting age 40; encourage self breast examination; encourage regular exercise; encourage no tobacco use; needs to schedule mammogram; history of recent colonoscopy PASCUAL [facility] [address], [place], [address], [facility] 08/23/2022 16:13:48 09/11/2023 text/html Annual Inspector Casing Post-MenopausalRepor ksenia bypatient.Menopausal Symptoms:no menopausal symptoms; normal vaginal lubrication Vaginal Bleeding:history of menopause having occurred; no history of post menopausal bleeding Urinary Symptoms:no hematuria; no incontinence; no nocturia; no urinary frequency Vulva:no genital lesion; no vulvar atrophy Vagina:normal vaginal discharge; no vaginal atrophy Breast:no breast lump; no nipple discharge; no breast pain Sexual Complaints:no sexual complaints;decreased libido Psychological Symptoms:no depression; no anxiety Preventive Measures:encourage regular mammograms starting age 40; encourage self breast examination; encourage regular exercise; encourage no tobacco useNotes:no h/o abnormal papslast pap 08/2022 - normalmammogram last olonoscopy done at 52low libido - has testosterone pellets and taking oral progesterone through hormone clinic. Has not noticed an improvement with libido. No hot flashes or night sweatspellets in October per patient PASCUAL [facility] [address], [place], [address], [facility] 09/11/2023 11:58:33 10/23/2023 text/html 57yo [id number] ents to discuss vaginal dryness and decreased libidovaginal dryness/pain with IC, uses ky lubricant which has not been helpinghas noticed some itching/clumpy discharge for the past 1 week, used OTC yeast tx with no improvement low libido - has testosterone pellets and taking oral progesterone through hormone clinic. Has not noticed an improvement with libido. No hot flashes or night sweatspellets in October per patient. Int in compounded topical testosterone once pellets as discussed at her [facility]. neg vaginal odorsneg n/v/fneg pelvic pain last pap 08/2022 : nilm, HPV (-) denies h/o DVT, cancer, or liver issues PASCUAL [facility] [address], [place], [address], [facility] 10/23/2023 11:18:31 10/01/2024 text/html 58yopresents for left breast lumpnoticed a few days ago non-tender, no redness, neg nipple dischargeh/o benign left breast biopsy years ago per pt on oral prometrium and estrogen/testosteron e pellets (managed by an HRT clinic) Merly Meza, PASCUAL [address], [place], [address], [facility] 10/01/2024 15:30:24 OBGyn Episode Ob Episode Information Episode Created Date Number of Fetuses Patient Bloodtype Patient rh Status Prepregnancy Weight lbs Domestic Partner Domestic Partner Phone Father Name Medical Reimbursement Specialist Status 08/23/19 23 1 CLOSED Fetus Data First Name Last Name Admitted to NICU Weight (g) Sex Living Outcome Pediatric Complications Fetus ID Race Codes Race Delivery Type , Spontane ous [id number] Ben Calculation Initial Ben Date Initial Exam Date Initial Exam Provider Initial Ultrasound Date Last Menstrual Period Date Ultra Sound Weeks Gestation 0 Eighteen To Twenty Week Ben Update Ultra Sound Date Fundal Height At Umbil Quickening Date Ultra Sound Latest Weeks Gestation Final Ben Confirmed By Final Ben Confirmed Date Final Ben Date Ultra Sound Latest Days Gestation 0 0 Menstrual History Last Menstrual Date Menses Monthly On Bcp Conception Prior Menses Frequency Hcg Plus Date Menarche Onset Age Delivery Information Delivery Date Delivery Type Labor Anesthesia Weeks Gestation Incision Type Labor Labor Length Hrs Delivered By Post Complications Tubal Sterilization Discharge Date Comments Discharge Information Feeding Method Contraceptive Method Maternal HG B and HCT Levels Ob Episode Information Episode Created Date Number of Fetuses Patient Bloodtype Patient rh Status Prepregnancy Weight lbs Domestic Partner Domestic Partner Phone Father Name Medical Reimbursement Specialist Status 08/23/19 23 1 CLOSED Fetus Data First Name Last Name Admitted to NICU Weight (g) Sex Living Outcome Pediatric Complications Fetus ID Race Codes Race Delivery Type , Spontane ous [id number] Ben Calculation Initial Ben Date Initial Exam Date Initial Exam Provider Initial Ultrasound Date Last Menstrual Period Date Ultra Sound Weeks Gestation 0 Eighteen To Twenty Week Ben Update Ultra Sound Date Fundal Height At Umbil Quickening Date Ultra Sound Latest Weeks Gestation Final Ben Confirmed By Final Ben Confirmed Date Final Ben Date Ultra Sound Latest Days Gestation 0 0 Menstrual History Last Menstrual Date Menses Monthly On Bcp Conception Prior Menses Frequency Hcg Plus Date Menarche Onset Age Delivery Information Delivery Date Delivery Type Labor Anesthesia Weeks Gestation Incision Type Labor Labor Length Hrs Delivered By Post Complications Tubal Sterilization Discharge Date Comments 0 Discharge Information Feeding Method Contraceptive Method Maternal HG B and HCT Levels Ob Episode Information Episode Created Date Number of Fetuses Patient Bloodtype Patient rh Status Prepregnancy Weight lbs Domestic Partner Domestic Partner Phone Father Name Medical Reimbursement Specialist Status 08/23/19 23 1 CLOSED Fetus Data First Name Last Name Admitted to NICU Weight (g) Sex Living Outcome Pediatric Complications Fetus ID Race Codes Race Delivery Type 3968.93 M Full Term [id number] Repeat Ben Calculation Initial Ben Date Initial Exam Date Initial Exam Provider Initial Ultrasound Date Last Menstrual Period Date Ultra Sound Weeks Gestation 0 Eighteen To Twenty Week Ben Update Ultra Sound Date Fundal Height At Umbil Quickening Date Ultra Sound Latest Weeks Gestation Final Ben Confirmed By Final Ben Confirmed Date Final Ben Date Ultra Sound Latest Days Gestation 0 0 Menstrual History Last Menstrual Date Menses Monthly On Bcp Conception Prior Menses Frequency Hcg Plus Date Menarche Onset Age Delivery Information Delivery Date Delivery Type Labor Anesthesia Weeks Gestation Incision Type Labor Labor Length Hrs Delivered By Post Complications Tubal Sterilization Discharge Date Comments 1 Discharge Information Feeding Method Contraceptive Method Maternal HG B and HCT Levels Ob Episode Information Episode Created Date Number of Fetuses Patient Bloodtype Patient rh Status Prepregnancy Weight lbs Domestic Partner Domestic Partner Phone Father Name Medical Reimbursement Specialist Status 08/23/19 23 1 CLOSED Fetus Data First Name Last Name Admitted to NICU Weight (g) Sex Living Outcome Pediatric Complications Fetus ID Race Codes Race Delivery Type 4450.64 [id number] M Full Term [id number] Primary Ben Calculation Initial Ben Date Initial Exam Date Initial Exam Provider Initial Ultrasound Date Last Menstrual Period Date Ultra Sound Weeks Gestation 0 Eighteen To Twenty Week Ben Update Ultra Sound Date Fundal Height At Umbil Quickening Date Ultra Sound Latest Weeks Gestation Final Ben Confirmed By Final Ben Confirmed Date Final Ben Date Ultra Sound Latest Days Gestation 0 0 Menstrual History Last Menstrual Date Menses Monthly On Bcp Conception Prior Menses Frequency Hcg Plus Date Menarche Onset Age Delivery Information Delivery Date Delivery Type Labor Anesthesia Weeks Gestation Incision Type Labor Labor Length Hrs Delivered By Post Complications Tubal Sterilization Discharge Date Comments 8 Discharge Information Feeding Method Contraceptive Method Maternal HG B and HCT Levels
--- OUTSIDE RECORDS SUMMARY | 2025-01-15 09:08 | XMS_ITS | Data Portability ---
Author Organization [facility], Main Office Address [address] [place] [address] Assessment Encounter Date Assessment Date Assessment LastModified by Organization Details LastModified Time 12/06/2022 12/06/2022 56-year-old female with left lateral epicondylitis due to overuse. previously received a 2nd corticosteroid injection approximately 2 weeks ago and has had improvement of her pain. we discussed additional treatment options including active modification, physical therapy to work on forearm stretches/eccentr ic exercises/graston massage, PRP injections, and surgical intervention. Advised her to make sure she is lifting with her palm up to offload the forearm extensors. She was provided with a referral to physical therapy for the next several weeks. she may follow-up as needed if her symptoms persist or worsen. [email or web address] Not available 12/06/2022 11:07:36 Plan of Treatment Reminders Order Date Submit Date Provider Last Modified By Organization Details Last Modified Time Details Appointments None recorded. Lab None recorded. Referral occupationa l therapist, physical rehabilitat ion referral - FOREARM STRETCHING, ECCENTRIC EXERCISES, [place] 2022 023 [email or web address] [facility], [address], [place], [address], 12:08:23 Procedures None recorded. Surgeries None recorded. Imaging XR, elbow, 3 or more view 2022 023 [email or web address] 3 [facility] [place], [address], [place], [address], 12:10:49 Medication Orders None recorded. Patient TargetsNo targets recorded. Patient InstructionsNo instructions recorded. Reason for Referral FOREARM STRETCHING, ECCENTRI C EXERCISES, [place] Referring Physician: [facility], Encounter Date: 12/06/2022 Results Created Date Observation Date Name Description Value Unit Range Abnormal Flag Note LastModifiedBy Organization Detail LastModifiedTime 12/07/19 23 XR, elbow , 3 or more view No observ ation record ed. [facility] [place] [address], [place], [address], 12/06/2022 11:04:18 Result Notes None recorded. Problems Name Problem SNOMED Code Status Onset Date Resolution Date Notes Provider Name and Address Organization Details Recorded Time Low back pain 722700028 Active Not Available [facility] 3 12:48:11 Pain of left shoulder joint 7318174250753 9109 Active 2022 JUVE Olea [employer] 3 09:27:00 Pain of left elbow joint 7451518995411 9104 Active 2022 JUVE Olea, [employer] 3 09:28:13 Lateral epicondyli tis of left humerus 7921750898400 00 Active 2022 COREY Camara [address], [place], [address] , [employer] 3 11:09:22 Problem Notes None recorded. Procedures Surgical History Date Name Laterality Status Provider Name and Address Organization Details Recorded Time repair of tendon completed JUVE Olea [employer] 12/06/2022 09:26:04 section completed JUVE Olea [employer] 12/06/2022 09:26:20 Imaging Results None recorded. Procedure Notes None recorded. Medical Equipment None Reported. Medications Name Sig Start Date Stop Date Status Note LastModified by Organization Details LastModified Time prednisone 20 mg tablet TAKE 2 TABLETS BY MOUTH ONCE DAILY FOR 5 DAYS 08/08 completed Not Available Not Available Not Available triamcinolo ne acetonide 0.1 % topical cream APPLY TOPICALLY TO EAR CANAL TWICE DAILY NEEDED FOR UP TO 2 WEEKS FOR SEBORRHEA 08/08 completed Not Available Not Available Not Available tamsulosin 0.4 mg capsule 12/01 completed Not Available Not Available Not Available Vitals Date Recorded Body height Body mass index (BMI) Body weight Provider Name and Address Organization Details Last Updated DateTime 12/06/2022 167.64 cm 25.2 kg/m2 40544.41 g JUVE Olea [employer] 12/06/2022 09:25:12 Social History Question Answer Notes LastModified by [employer] Details LastModified Time Tobacco Smoking Status Unknown If Ever Smoked JUVE Olea [facility] [employer] 12/06/2022 09:25:34 What Was The Date Of Your Most Recent Tobacco Screening? 12/06/2022 Information not available 12/06/2022 Sex: Unknown Functional Status Question Answer Note LastModified by [employer] Details LastModified Time What is your level of alcohol consumption? Occasional [email or web address] Information not available 12/06/2022 Mental Status None recorded. Family History Nothing Reported. Medical History Condition Response ANEMIA/BLOOD DISORDER Y Gynecological HistoryNo gynecological history recorded. Obstetrics History GPAL:G 0 P 0 0 0 0 Past Encounters Encounter ID Performer Location Encounter Start Date Encounter Closed Date Diagnosis/Indication Diagnosis SNOMED-CT Code Diagnosis ICD10 Code Diagnosis Note [id number] Shawn Berumen MD [facility] [place] [address] [place] [address] 12/06/2022 09:14:28 12/06/2022 10:38:37 Pain of left elbow joint 2429002101 6664140 M25.522 Lateral ep icondylitis of left humerus 6527271844 99022 M77.12 Health Concerns Section Related Observation LastModified by Organization Detai ls LastModified Time None Recorded Concern Status LastModified by Organization Details LastModified Time None Recorded Advance Directives Directive None Recorded Payers Insurance Date Sequence Insurance Name Policy Number Policy Asencio Covered Member ID Asencio Member ID Guarantor Name 11/24/2022 1 [employer] [id number] Geri Sol [id number] Geri Sol 12/06/2022 1 [facility] [id number] Geri Sol [id number] Geri Sol Notes Date Note Type Note Provider Name and Address Organization Details Recorded Time 12/06/2022 text/html 56-year-old paul amezquita presents to clinic concerning left elbow lateral epicondylitis. She states that she has been lifting weights regularly and this has exacerbated the pain. She notes she recently got a 2nd corticosteroid injection into the left elbow about 2 weeks ago and has had improvement of her pain. She notes occasionally when lifting she will have twinges of pain over the at the epicondyle. she states that she has not been consistent with forearm stretches and friction massage. She also notes previous lateral epicondyle as debridement on the right elbow years ago by Dr. García. COREY Camara [address] [place] [address], [place] [address], [place], [address], [place] [facility] [employer] [facility] 12/06/2022 11:09:38 OBGyn Episode No OBEpisode recorded.
--- OUTSIDE RECORDS SUMMARY | 2025-01-15 09:08 | XMS_ITS | Clinical Summary ---
Author Organization [facility] Address [address] [place] [address] Care Team Providers Care Choreography Director Name Role Phone None, Physician Primary Care Provider Unavailabl e Source Comments [facility] [employer],non-owned Affiliates and Associated Physician Practices is amultiple site organization consisting of ambulatory clinics and hospital sitesin [place], [place], [place] and [place]. This disclosure is being madepursuant to the Care Everywhere program and may not contain all information available regarding this patient. Last updated 18.[facility] [employer] Allergies No known active allergies Medications * Be aware that medications may not be up to date on this document. Alwaysverify current medications with the patient. Progesterone 100 MG capsule Take 1 (one) capsule by mouth Active predniSONE (Deltasone) 10 MG tablet TAKE 6 TABLETS BY MOUTH ONCE DAILY NOW THEN 4 ONCE DAILY IN THE MORNING FOR 2 DAYS THEN 3 ONCE DAILY FOR 2 DAYS THEN 2 ONCE DAILY FOR 2 DAYS THEN 1 ONCE DAILY FOR 2 DAYS THEN 1/2 (ONE-HALF) ONCE DAILY FOR 2 DAYS (6-4-4-3-3-2 -2-1-1-.5-.5 ) 12/26/2024 Active Encounters Date Type Department Care Team Description 01/02/2025 10:00 AM CDT Office Visit [facility] - General Surgery [address] [place] [id number] Vita Kingston MD Mass of upper outer quadrant of left breast (Primary Dx) 01/02/2025 9:21 AM CDT - 01/02/2025 11:59 PM CDT Hospital Encounter [facility] - Outside Imaging Discharge Disposition: Home or Self Care 01/02/2025 Travel 01/01/2025 4:01 PM CDT - 01/01/2025 11:59 PM CDT Hospital Encounter [facility] - Outside Imaging Discharge Disposition: Home or Self Care 01/01/2025 4:01 PM CDT - 01/01/2025 11:59 PM CDT Hospital Encounter [facility] - Outside Imaging Discharge Disposition: Home or Self Care 01/01/2025 4:00 PM CDT Hospital Encounter [facility] - Outside Imaging Discharge Disposition: Home or Self Care from Last 3 Months Social History Tobacco Use Types Packs/Day Years Used Date Smoking Tobacco: Never Smokeless Tobacco: Never Tobacco Cessation:Counseling Given: Not Answered Alcohol Use Standard Drinks/Week Comments Yes 0 (1 standard drink = 0.6 oz pur e alcohol) PHQ-2 Answer Date Recorded Patient Health Questionnaire-2 Score 0 01/02/2025 Comments Unknown Sex and Gender Information Value Date Recorded Sex Assigned at Not on file Legal Sex Female 6:35 PM BAGGAGEMAN Gender Identity Not on file Sexual Orientation Not on file Last Filed Vital Signs Vital Sign Reading Time Taken Comments Blood Pressure 129/70 01/02/2025 9:57 AM CDT Pulse 59 01/02/2025 9:57 AM CDT Temperature 36.8 C (98.3 F) 01/02/2025 9:57 AM CDT Respiratory Rate 17 01/02/2025 9:57 AM CDT Oxygen Saturation 98% 01/02/2025 9:57 AM CDT Inhaled Oxygen Concentration - - Weight 69.4 kg (153 lb) 01/02/2025 9:57 AM CDT Height 167.6 cm (5' 6) 01/02/2025 9:57 AM CDT Body Mass Index 24.69 01/02/2025 9:57 AM CDT Plan of Treatment Upcoming Encounters Date Type Department Care Team (Late st Contact Info) Description 01/23/2025 8:00 AM CDT Office Visit [facility] - General Surgery [address] [place] [address] Vita Kingston MD [address] [facility] [address] [place] [address] Health Maintenance Due Date Last Done Comments COLOGUARD (AGES 45-75) - COL ON CA SCREENING 1965 COLON MONITORING 1965 COLONOSCOPY - COLON CA SCREENING 1967 CT COLONOGRAPHY - COLON CA SCREENING 1965 Colorectal Cancer Screening 1965 FIT - COLON CA SCREENING 1967 FLEX SIG - COLON CA SCREENING 1965 MAMMOGRAM 1965 HIV SCREENING 12/29/1982 HEPATITIS C SCREENING 12/25/1985 DTAP/TDAP/TD VACCINES (1 - Tdap) 12/29/1986 HEPATITIS B VACCINE (1 of 3 - 19+ 3-dose series) 12/29/1986 PAP SMEAR 12/29/1988 PNEUMOCOCCAL VACCINE 50+ (1 of 1 - PCV) 12/29/2017 ZOSTER VACCINE (1 of 2) 12/29/2017 COVID-19 VACCINE (1 - 2023-2 5 season) 2024 INFLUENZA VACCINE (#1) 2025 LIPID TESTING 10/08/2029 10/08/2024 DEPRESSION SCREENING Completed 01/02/2025 HIB VACCINE Aged Out No longer eligi ble based on patient's age to complete this topic HPV VACCINE Aged Out No longer eligi ble based on patient's age to complete this topic MENINGOCOCCAL (Group B) VACC INE SHARED DECISION-MAKING Aged Out No longer eligibl e based on patient's age to complete this topic MENINGOCOCCAL GROUPS A/C/Y/W VACCINE Aged Out No longer eligible b ased on patient's age to complete this topic Insurance [employer] Care Teams Choreography Director Relationship Specialty Start Date End Date None, Physician PCP - General 01/02/25
--- OUTSIDE RECORDS SUMMARY | 2025-01-15 09:08 | XMS_ITS | Referral Summary ---
Author Organization [facility] Building [address] [place] [address] Care Team Providers Care Food Checkers And Cashiers Supervisor Name Role Phone Kishor Daley MD Primary Care Provider [phone] Encounters Date Type Department Care Team Description 12/03/2024 Telephone [facility] [address] [facility] [address], [place] [address] Kika Guidry 12/03/2024 Telephone [facility] Surgery [facility] Floor [address] [place] [address] Referral, Self Medical Question/Miscellaneous from Last 3 Months Allergies No known active allergies Medications progesterone (PROMETRIUM) 100 mg capsule Take 1 capsule (100 mg total) by mouth nightly 07/30/2024 Active cetirizine (ZyrTEC) 10 mg tablet Take 1 tablet (10 mg total) by mouth daily Active Active Problems Problem Noted Date Diagnosed Date Dysfunction of right eustachian tube 08/21/2024 Assessment & Plan (08/21/2024 8:45 PM BUSHWALKING GUIDE): She has a pretty normal ear exam [...] 08/21/2024 Assessment & Plan (08/21/2024 8:52 PM BUSHWALKING GUIDE): I talked with the patient about tinnitus. Typically it is due to hearing loss but there are other potential reasons for it. It can occur due to cervical strain or TMJ disorder. Also potentially due to tumors which are usually benign. Unfortunately there is no widely accepted or successful treatment for it. There are a lot of hpyy-vyp-mptmsrt remedies which generally do not help and I really do not recommend any of them. In her case I think it is probably due to her high-frequency sensorineural hearing loss. I do not think that amplification is necessary but I really do not have anything to recommend for the tinnitus. Tonsil stone 08/21/2024 Assessment & Plan (08/21/2024 8:53 PM BUSHWALKING GUIDE): She had listed this on her paperwork but we really did not discuss it. I did not notice anything abnormal involving her tonsils. We will discuss that with her over the phone. Arthralgia of hip 08/18/2015 Social History Tobacco Use Types Packs/Day Years Used Date Smoking Tobacco: Never Smokeless Tobacco: Never Tobacco Cessation:Counseling Given: Not Answered Comments Unknown Sex and Gender Information Value Date Recorded Sex Assigned at Not on file Legal Sex Female 10:50 AM BUSHWALKING GUIDE Gender Identity Not on file Sexual Orientation Not on file Last Filed Vital Signs Vital Sign Reading Time Taken Comments Blood Pressure - - Pulse - - Temperature - - Respiratory Rate 18 08/21/2024 10:17 AM BUSHWALKING GUIDE Oxygen Saturation - - Inhaled Oxygen Concentration - - Weight 71.2 kg (157 lb) 08/21/2024 10:17 AM BUSHWALKING GUIDE Height 167.6 cm (5' 6) 08/21/2024 10:17 AM BUSHWALKING GUIDE Body Mass Index 25.34 08/21/2024 10:17 AM BUSHWALKING GUIDE Plan of Treatment Not on file Insurance [employer] [facility] Care Teams Food Checkers And Cashiers Supervisor Relationship Specialty Start Date End Date Kishor Daley MD [address] [address] PCP - General Family Medicine 08/06/24
--- NOTE | 2025-01-15 10:12 | S_PTH ---
PATIENT: Geri Sol LOC: [facility] U#:[id number] AGE/SX: 59/F ROOM: RE01/15/[address]: Fabiana Ramires MD : 1965 BED: DIS: 01/15/2025 SPEC #: [id number] RECD: 01/15/25 10:51 STATUS: JAN REQ #: [id number] DAI: 01/15/25 10:[address]: Fabiana Ramires DEPT: [facility] Surgical RECD BY: Mable Vernon ENTERED: 01/15/25 10:52 SP TYPE: Surgical OTHR DR: Kishor Daley MD Tissues: A - Breast Biopsy Procedures: Hematoxylin and Eosin Stain Gross and Microscopic Level 4 ER-60 VT-60 MIB-60 HER 2-60
== END 2025-01-15 09:03 | disposition home or self-care (01) ==
LOC: ANHIMG 09:02
PROVIDERS: PCP Family Medicine; Visit Provider Surgery
DX: C50.612 Malignant neoplasm of axillary tail of left female breast (principal)
CPT/HCPCS: 20999; 76942; 88305; 88360; A4648

== ENCOUNTER 2025-04-24 11:07 | Emergency (ER) | payer BC, SELFPAY ==
--- NOTE | ~2025-04-24 | XR_ITS ---
EXAMINATION: XR chest 2V 04/24/2025 11:54 INDICATION: Upper back pain. Patient on chemotherapy. PROCEDURE: 2 view chest COMPARISON: No prior studies for comparison. FINDINGS: The lungs are clear. There is a kera catheter, tip in the SVC. Prominent left nipple shadow. The cardiomediastinal silhouette is within normal limits. There are no pleural effusions. There is no pneumothorax suspected. IMPRESSION: 1: NO ACUTE CARDIOPULMONARY DISEASE. Reviewed, dictated and finalized at location O.
[2025-04-24 11:17] VITALS: BP 124/70; PULSE 73; RESP 16; TEMP 36.1; O2SAT 100
--- NOTE | 2025-04-24 12:47 | ED.BACK ---
HPI - Back Pain/Injury General Chief Complaint: Back Pain/Injury Stated Complaint: Back Pain Time Seen by Provider: 04/24/25 12:00 Source: patient and RN notes reviewed Mode of arrival: ambulatory Limitations: no limitations History of Present Illness HPI Narrative: 59-year-old female presents Express Care with spouse complaining of right upper mid back pain for approximately 10 days. Patient denies any apparent injuries or falls. Patient said she was doing exercises on inversion table when she developed the pain afterwards. Patient says the pain is worse with turning twisting of her trunk or certain movements of her right arm. Patient denies any cough, congestion, fevers, upper respiratory symptoms, chest pain difficulty breathing, nausea vomiting, diarrhea, saddle anesthesia, numbness, tingling, weakness, loss of bowel or bladder function, or any other symptoms. Patient says she is currently on chemotherapy for breast cancer. Patient was concerned that she might have pneumonia because of the pain she is having in her back. Patient denies any worsening pain with inspiration. Related Data Home Medications ?Medication ?Instructions ?Recorded ?Confirmed ?Last Taken ?Type cholecalciferol (vitamin D3) 125 5,000 unit PO DAILY 09/27/22 04/24/25 Unknown History mcg (5,000 unit) capsule magnesium oxide 500 mg PO BID 10/03/23 04/24/25 Unknown History estrogen/testosterone pellets subdermal 11/12/24 12/12/24 Unknown History progesterone micronized 100 mg 100 mg PO QAM 11/12/24 04/24/25 Unknown History capsule multivitamin 1 tablet PO DAILY 12/12/24 04/24/25 Unknown History omega-3 fatty acids 500 mg capsule 500 mg PO DAILY 12/12/24 04/24/25 Unknown History ivermectin .ROUTE 04/24/25 Unknown History mebendazole 04/24/25 Unknown History Allergies Allergy/AdvReac Type Severity Reaction Status Date / Time No Known Allergies Allergy Unknown Verified 04/24/25 11:17 Review of Systems Review of Systems: CONSTITUTIONAL: Denies fever, chills, or sweats. EYES: Denies visual changes, redness, or discharge. ENT: Denies rhinorrhea, congestion, sore throat, or otalgia. CARDIOVASCULAR: Denies chest pain, palpitations, or edema. RESPIRATORY: Denies cough, wheezing, difficulty breathing, or dyspnea. GASTROINTESTINAL: Denies abdominal pain, nausea, vomiting, or diarrhea. GENITOURINARY: Denies dysuria or hematuria. SKIN: Denies rash or itching. MUSCULOSKELETAL: Positive for back pain. Negative for neck pain, joint pain, or myalgia. NEUROLOGIC: Denies headache, numbness, or weakness. PSYCHIATRIC: Denies anxiety or depression. All other systems reviewed are negative, except as documented in HPI. [facility] Past Medical History Medical History Invasive ductal carcinoma of left breast (~01/17/25) left breast biopsy 01/15/2025 with invasive ductal carcinoma. Contact dermatitis due to plant Hormone replacement therapy treated by [facility] with testosterone estrogen pellets q.3 months Menopausal and postmenopausal disorder Low back pain Candidiasis Constipation Candidiasis of intestine Encounter for wellness examination in adult Colon cancer screening normal colonoscopy with treatment of internal hemorrhoid 12/17/2018 with recheck in 10 years. Breast cancer screening by mammogram normal mammogram 03/22/2023. Normal mammogram 03/25/2024. Obstructive sleep apnea (~10/02/22) home sleep study 10/02/2022 with AHI 9.1. APAP at 5-15 cm water pressure with nasal mask and heated humidity 12/30/2022. Surgical procedure October, December, 2024. Vitamin D insufficiency level normal at 75.6 on 08/23/2022. Level normal at 73 on 10/06/2023. Hypersomnia Lateral epicondylitis of left elbow Chronic pain of right knee Halitosis Seborrhea ear canal BMI 25.0-25.9,adult Chronic thoracic back pain Seasonal allergies Anemia Hemoglobin 10.4, hematocrit 35.1, vitamin B12 456, folic acid 13.5 on 08/23/2022 with patient donating blood every 2 months. Iron 70 with 18% saturation and ferritin low at 10 with hemoglobin 12.1 on 10/14/2022. Hemoglobin 14.4, iron 82 with 19% saturation and ferritin 13, vitamin B12 646, folic acid 22.8 on 10/06/2023. Screening for viral disease Acute non-recurrent maxillary sinusitis COVID-19 (05/15/21) positive home test on 05/18/2021 Family History Family History Other Family history of coronary artery disease Social History Social History Smoking status: Never smoker Alcohol intake: current Drinks per week: 1 Alcohol use details: mixed drinks Substance use: never Substance use type: does not use Do You Feel Safe in your Home?: Yes Lack of Transportation: No Lack of Food: Never True Current Housing: I Have Housing Concerned About Future Housing: No Difficulty Paying Gas/Electric Bills: No Difficulty Paying for Meds: No Currently Unemployed: YES Education: Bachelor's Degree Difficulty w/ Childcare or Family Care: No Comments At the time of my signature, I reviewed and agree with the nursing past medical, surgical, social, and family history. There is no relevant family history pertinent to the patient complaint. Exam Narrative: GENERAL: This is a well-nourished, well-developed adult, in no apparent distress. They are non ill-appearing, nontoxic appearing. HEAD: normocephalic, atraumatic. EYES: Sclera clear/white. Conjunctiva normal. Vision is grossly intact. Extraocular movements intact EARS: External ears normal, auditory canals clear and without drainage, TMs normal without perforation. Hearing grossly intact. NOSE: External nose normal with no obvious nasal discharge, nasal turbinates without redness, no rhinorrhea. THROAT: Mucous membranes moist, posterior pharynx clear, without erythema or swelling. Uvula midline. NECK: Neck supple, non-tender without lymphadenopathy, masses or thyromegaly. No cervical point tenderness, crepitus, or step-offs. CHEST WALL: No paradoxical movements, no flail chest segment. CARDIOVASCULAR: Regular rate and rhythm without murmurs, gallops, or rubs. RESPIRATORY: Clear to auscultation. Breath sounds equal bilaterally. No wheezes, rales, or rhonchi. SKIN: warm, Dry, intact with no suspicious lesions or rash, good texture and turgor. NEURO: awake, alert, and oriented to person, place and time. There were no obvious focal neurologic abnormalities. EXTREMITIES: No joint tenderness, effusion, or edema noted. BACK: No thoracic or lumbar point tenderness, crepitus, or step-offs. No CVA tenderness. Right upper mid back is tender to palpate. No obvious deformity or injury. Course Course Emergency Course: Portions of this record may have been created with voice recognition software Level of Care: Express Care Visit Vital Signs Vital signs: Vital Signs Temperature 97 F L 04/24/25 11:17 Pulse Rate 73 04/24/25 11:17 Respiratory Rate 16 04/24/25 11:17 Blood Pressure 124/70 04/24/25 11:17 Pulse Oximetry 100 04/24/25 11:17 Temperature 97 F L 04/24/25 11:17 Pulse Rate 73 04/24/25 11:17 Respiratory Rate 16 04/24/25 11:17 Blood Pressure 124/70 04/24/25 11:17 Pulse Oximetry 100 04/24/25 11:17 Reviewed MDM - Back Pain/Injury MDM Narrative Medical decision making narrative: Chest x-ray negative for any evidence of pneumonia or any acute cardiopulmonary findings. Symptoms are likely consistent with a musculoskeletal injury. Will give patient a course a muscle relaxers discussed supportive care. Discussed physical exam findings. Advised supportive measures and signs/symptoms to go to the ER. Pt is appropriate for outpt treatment and f/u. Differential Diagnosis Differential diagnosis: Likely thoracic back pain and other (Muscle strain, mid back pain, pneumonia, pleurisy,) Imaging Data Radiologist's impression: ITS Impressions Chest X-Ray 04/24/25 11:54 IMPRESSION: 1: NO ACUTE CARDIOPULMONARY DISEASE. Critical Care Time Critical Care Time Critical Care Time: No Discharge Plan Discharge Clinical Impression: Mid back pain on right side Patient Disposition: Home Condition: Stable Instructions: Back Pain (ED) Additional Instructions: Your chest x-ray is negative for any acute cardiopulmonary findings. Take the muscle relaxer as directed. Do not drive or operate heavy machine, or work while taking the medication as it can make you drowsy. Talketo your oncologist if you are allowed to take Tylenol or ibuprofen, if able you may take that as needed for pain. Follow the instructions on the bottle. Please follow-up with your primary care provider if pain persist Rest. Avoid pushing, pulling, lifting --running or excessive walking-- or anything that worsens the symptoms You may try stretching your lower back or doing spinal decompression to help with symptoms. Go to the emergency department if you develop any numbness or tingling to your groin, fevers, chest pain, breathing problems weakness in your legs, or any loss of bowel or bladder function. Patient Language: Iraqi Prescriptions: New methocarbamol 750 mg tablet 750 mg PO TID PRN (Reason: muscle spasms) Qty: 10 0RF No Action ivermectin .ROUTE mebendazole cholecalciferol (vitamin D3) 125 mcg (5,000 unit) capsule 5,000 unit PO DAILY magnesium oxide 500 mg magnesium tablet 500 mg PO BID progesterone micronized 100 mg capsule 100 mg PO QAM Patient Comments: prescribed by Dr. Box estrogen/testosterone pellets subdermal Patient Comments: subcutaneous pellets every [address] oBx multivitamin Tablet 1 tablet PO DAILY omega-3 fatty acids 500 mg capsule 500 mg PO DAILY Follow-up/Referrals: Kishor Daley MD [Primary Care Provider, Family Practice] Time of Disposition: 12:25
== END 2025-04-24 12:31 | disposition home or self-care (01) ==
PROVIDERS: PCP Family Medicine
DX: M54.6 Pain in thoracic spine (principal); C50.912 Malignant neoplasm of unspecified site of left female breast; Z79.60 Long term (current) use of unspecified immunomodulators and immunosuppressants; E55.9 Vitamin D deficiency, unspecified; Z86.16 Personal history of COVID-19
CPT/HCPCS: 71046; 99213; G0463